=== PATIENT | female | born 1985 ===

== ENCOUNTER → 2020-07-01 09:33 | Outpatient (BNVA) | payer OTHER, SELFPAY | PROVIDERS: PCP Internal Medicine; Visit Provider Surgery | DX: Z76.89 Persons encountering health services in other specified circumstances (principal) ==

== ENCOUNTER 2020-07-08 11:47 | Outpatient (REF) | payer OTHER, SELFPAY ==
[2020-07-08 11:56] VITALS: BP 147/70; PULSE 84; RESP 16; TEMP 36.1; O2SAT 100
[2020-07-08 12:01] VITALS: BMI 36.6
[2020-07-08 12:25] VITALS: BP 150/80; PULSE 76; RESP 16; O2SAT 100
--- NOTE | 2020-07-08 19:17 | OP_ITS ---
SURGEON: Herberth Ross MD INDICATIONS: The patient is a 35-year-old female with lipomatous mass on the upper back towards the left of the midline. In view of increase in size, she wanted to proceed with excision. She understood technique of excision under local anesthesia and she is aware of the risks, benefits, and alternatives. PREOPERATIVE DIAGNOSIS: Lipoma from the back. POSTOPERATIVE DIAGNOSIS: Lipoma, subfascial on the back. PROCEDURE PERFORMED: Excision of subfascial lipoma, from the back. ESTIMATED BLOOD LOSS: COMPLICATIONS: ANESTHESIA: ASSISTANTS: SPECIMENS: DESCRIPTION OF PROCEDURE: She was brought to the minor procedure room and placed in prone position. The area of lipoma was prepped and draped. Lidocaine 1% was used for local anesthesia. Transverse incision was made in the skin overlying the lipoma using blade #15, it was carried down to full-thickness skin and thick subcutaneous fat. We continued to palpate lipoma. We reached the fascia of the muscle and the lipoma was actually underneath this, so we had to make an incision on the fascia as well. The lipoma was then directly visualized. We sharply dissected lipoma off the rest of the surrounding tissue using Metzenbaum scissors until we were able to completely deliver this. The lipoma measured about 4 cm x 3 cm in size. I irrigated the area of excision. I closed the fascial layer with Dexon 3-0 interrupted sutures. Skin closure achieved with nylon 3-0 interrupted sutures. Dressings were applied. The patient tolerated the procedure well. There were no complications noted. She will be seen in the office for followup for removal of sutures. MD ADRIANA Chen/MODL / [id number]
== END 2020-07-08 11:48 | disposition home or self-care (01) ==
LOC: HO.MS 11:47
PROVIDERS: Visit Provider Surgery
PROC: (CPT 21932; principal; 2020-07-08 12:00)
DX: D17.1 Benign lipomatous neoplasm of skin and subcutaneous tissue of trunk (principal); F41.9 Anxiety disorder, unspecified; Z79.899 Other long term (current) drug therapy
CPT/HCPCS: 21932; 88304

== ENCOUNTER → 2020-07-17 15:46 | Outpatient (BNVA) | payer OTHER, SELFPAY | PROVIDERS: Visit Provider Surgery ==

== ENCOUNTER 2021-05-21 06:29 | Outpatient (REF) | payer OTHER, SELFPAY ==
[2021-05-21 07:48] LABS: Alanine Aminotransferase 25 U/L (0-31); Albumin Level 4.3 g/dL (3.5-5.0); Alkaline Phosphatase 82 U/L (39-117); Anion Gap 14 (12-20); Aspartate Amino Transferase 22 U/L (5-31); Bilirubin Total 0.3 mg/dL (0.0-1.0); Blood Urea Nitrogen 15 mg/dL (9-16); Calcium 9.5 mg/dL (8.4-10.2); Carbon Dioxide 24 mmol/L (22-29); Chloride 106 mmol/L (96-108); Cholesterol 216 mg/dL; Estimated Glomerular Filt Rate > 60; Glucose Fasting 119 mg/dL (60-99); HDL Cholesterol 39 mg/dL; LDL Cholesterol Calculated 129 mg/dl; Potassium 4.4 mmol/L (3.3-5.1); Sodium 140 mmol/L (135-145); Total Protein 7.3 g/dL (6.5-8.0); Triglycerides 242 mg/dL
[2021-05-21 08:11] LABS: TSH reflex Free T4 0.91 uIU/mL (0.32-4.0)
== END 2021-05-21 06:30 | disposition home or self-care (01) ==
LOC: HO.LAB 06:29
PROVIDERS: PCP Internal Medicine; Visit Provider Internal Medicine
DX: E78.5 Hyperlipidemia, unspecified (principal); R73.03 Prediabetes; F41.1 Generalized anxiety disorder
CPT/HCPCS: 36415; 80053; 80061; 84443

== ENCOUNTER 2021-06-27 09:13 | Outpatient (REF) | payer OTHER, SELFPAY ==
[2021-06-27 10:28] LABS: Anion Gap 10 (12-20); Blood Urea Nitrogen 10 mg/dL (9-16); Calcium 9.5 mg/dL (8.4-10.2); Carbon Dioxide 28 mmol/L (22-29); Chloride 104 mmol/L (96-108); Cholesterol 197 mg/dL; Estimated Glomerular Filt Rate > 60; Glucose Fasting 101 mg/dL (60-99); HDL Cholesterol 36 mg/dL; LDL Cholesterol Calculated 124 mg/dl; Potassium 4.2 mmol/L (3.3-5.1); Sodium 138 mmol/L (135-145); Triglycerides 187 mg/dL
[2021-06-27 10:39] LABS: TSH reflex Free T4 0.59 uIU/mL (0.32-4.0)
[2021-06-27 10:40] LABS: Estimated Average Glucose 114 mg/dL; Hemoglobin A1c % 5.6 %
== END 2021-06-27 09:14 | disposition home or self-care (01) ==
LOC: HO.LAB 09:13
PROVIDERS: PCP Internal Medicine; Visit Provider Internal Medicine
DX: E78.5 Hyperlipidemia, unspecified (principal); F41.1 Generalized anxiety disorder; R73.03 Prediabetes
CPT/HCPCS: 36415; 80048; 80061; 83036; 84443

== ENCOUNTER 2022-04-27 16:03 | Outpatient (REF) | payer OTHER, SELFPAY ==
--- NOTE | ~2022-04-27 | MM_ITS ---
EXAMINATION: MM SCREENING DIGITAL BREAST TOMOSYNTHESIS, BILATERAL CLINICAL INFORMATION: Screening. Asymptomatic. Age 37. No prior breast imaging. The lifetime risk of breast cancer based on the Tyrer-Cuzick Model is 25%. COMPARISON: None (current study represents initial baseline exam). TECHNIQUE: Digital breast tomosynthesis is performed in both the craniocaudal and mediolateral oblique views along with computer-aided detection (CAD). Synthesized 2D images are generated from the tomosynthesis. Additional exaggerated right CC view is provided. FINDINGS: There are scattered areas of fibroglandular density (ACR BI-RADS breast composition Category b). Breast tissue composition borders on heterogeneously dense. There is fine fibronodular parenchymal pattern. No significant mass or architectural abnormality. No abnormal calcifications. The axilla are unremarkable. There are dermal lesions overlying the posterior 11:00 left breast and posterior lower inner right breast, respectively. MM/MM tomosynthesis screening BI IMPRESSION: No mammographic evidence of malignancy. ASSESSMENT: BI-RADS 2: Benign RECOMMENDATION: Routine annual mammography screening. This patient's information was entered into a reminder system with a target due date for their next mammogram.
== END 2022-04-27 16:04 | disposition home or self-care (01) ==
LOC: HO.MAMMO 16:03
PROVIDERS: Visit Provider Internal Medicine
DX: Z12.31 Encounter for screening mammogram for malignant neoplasm of breast (principal)
CPT/HCPCS: 77063; 77067

== ENCOUNTER 2022-05-14 21:44 | Emergency (ER) | payer OTHER, SELFPAY ==
[2022-05-14 21:53] VITALS: BP 147/98; PULSE 80; RESP 24; TEMP 36.1; O2SAT 100; BMI 34.9
[2022-05-14 22:08] VITALS: BP 161/100; PULSE 61; RESP 17; TEMP 37; O2SAT 99
--- NOTE | 2022-05-14 22:18 | ED.HA ---
HPI - Headache General Chief Complaint: Headache Stated Complaint: severe migraine and vomiting Time Seen by Provider: 05/14/22 22:05 Source: patient Mode of arrival: ambulatory Limitations: no limitations History of Present Illness HPI Narrative: Patient history of anxiety and migraine headache been having headache for last 3 days headache is mostly in frontal in the back of the head patient does get headaches almost every 3 weeks has not seen any specialist not special medication take Excedrin and Tylenol. No fever no chills feel nauseated vomiting few times no light sensitivity no neck pain or fever or chills Related Data Previous Rx's Medication Instructions Recorded nirmatrelvir 300 mg (150 mg See Rx Instructions PO .COMPLEX 01/20/22 x2)-ritonavir 100 mg tablet,dose #30 tabs pack(EUA) ondansetron HCl 4 mg tablet 4 mg PO Q8H PRN nausea and 01/20/22 vomiting 7 days #14 tabs fluoxetine 20 mg capsule 20 mg PO DAILY 90 days #90 caps 05/10/22 soiukccuuk-ppdcbhbavxeyx-xuxpyvxg 1 cap PO Q6H PRN headache #20 caps 05/15/22 50 mg-300 mg-40 mg capsule (Fioricet) sumatriptan succinate 50 mg tablet 50 mg PO Q2H PRN migraine headache 05/15/22 (Imitrex) #10 tabs Allergies Allergy/AdvReac Type Severity Reaction Status Date / Time No Known Allergies Allergy Verified 07/17/20 15:55 Review of Systems Review of Systems: Yes all other systems are reviewed and are negative PMFSH Past Medical History Medical History Abnormal skin growth Anxiety, generalized Elevated lipids Lipoma Surgical History No pertinent past surgical history Family History Family History Father No problems noted. Mother No problems noted. Paternal Grandmother Breast cancer Sister No problems noted. Paternal Aunt Breast cancer Social History Social History Alcohol intake: current Alcohol intake frequency: holidays/special occasions only Advance Directives: No Advance Directives Information Provided: Yes Physical Exam Vital Signs: Vital Signs: Last Vital Signs Temp 98.6 F 05/14/22 22:08 Pulse 61 05/14/22 22:08 Resp 17 05/14/22 22:08 BP 161/100 H 05/14/22 22:08 Pulse Ox 99 05/14/22 22:08 O2 Del Method 05/14/22 22:08 BMI result Body Mass Index 34.9 Appearance: Alert. Oriented X3. No acute distress. Eyes: PERRLA, No Nystagmus ENT: Pharynx normal. Oral Mucosa moist no temporal artery tenderness no sinus tenderness Neck: Normal inspection. Neck supple. CVS: Normal heart rate and rhythm. Pulses normal. Respiratory: No respiratory distress. Equal air entry bilateral, no wheezing/rales/rhonchi Abdomen: Soft and nontender. Bowel sounds are present, no mass palpable, no CVA tenderness Skin: Skin warm and dry. Normal skin color. Normal skin turgor. Extremities: No lower extremity edema. No calf tenderness Neuro: Oriented X 3. No motor deficit. No sensory deficit.No cerebellar signs , cranial nerves II-XII intact Medications Administered Discontinued Medications Generic Name Dose Route Start Last Admin Trade Name Freq PRN Reason Stop Dose Admin Diphenhydramine HCl 25 mg 05/14/22 23:18 05/14/22 23:31 Diphenhydramine Hcl 50 Mg/Ml Vial IVPUSH 05/14/22 23:19 25 mg ONCE ONE Administration Ketorolac Tromethamine 30 mg 05/14/22 23:18 05/14/22 23:31 Ketorolac Tromethamine 30 Mg/Ml Vial IVPUSH 05/14/22 23:19 30 mg ONCE ONE Administration Metoclopramide HCl 10 mg 05/14/22 23:18 05/14/22 23:31 Metoclopramide Hcl 10 Mg/2 Ml Vial IVPUSH 05/14/22 23:19 10 mg ONCE ONE Administration Ondansetron HCl 4 mg 05/14/22 22:30 05/14/22 22:59 Ondansetron Odt 4 Mg Tab.Rapdis TRANSLINGU 05/14/22 22:31 4 mg ONCE ONE Administration Sumatriptan Succinate 6 mg 05/14/22 22:30 05/14/22 22:59 Sumatriptan Succinate 6 Mg/0.5 Ml Vial SUBCUT 05/14/22 22:31 6 mg ONCE ONE Administration MDM - Headache MDM Narrative Medical decision making narrative: Patient migraine headache headache since be migraine will try Imitrex and Zofran 0015 Poor response to Imitrex responded to Toradol Benadryl and Reglan discharge patient home on Fioricet and Imitrex Lab Data Attestation: I reviewed the patient's lab results. Result diagrams: 05/14/22 23:27 05/14/22 23:27 Labs: Lab Results 05/14/22 05/14/22 Range/Units 23:27 23:27 WBC 15.2 H (4.8-10.8) X10*3/uL RBC 4.51 (4.20-5.50) X10*6/uL Hgb 12.4 (12.0-16.0) g/dl Hct 38.6 (37.0-47.0) % MCV 85.6 (80.0-98.0) fL MCH 27.5 (27.0-33.0) pg MCHC 32.1 (31.0-35.0) g/dl RDW 14.3 (11.0-16.0) % Plt Count 269 (160-400) X10*3/uL MPV 9.9 (9.4-12.3) fL Immature Gran % (Auto) 0.4 (0.0-0.4) % Neut % (Auto) 83.0 H (45-73) % Lymph % (Auto) 12.3 L (20-40) % [place] % (Auto) 3.9 (2-11) % Eos % (Auto) 0.1 (0-4) % Baso % (Auto) 0.3 (0-2) % Lymph # (Auto) 1.9 (1.2-4.9) X10*3/uL [place] # (Auto) 0.6 (0.1-1.2) X10*3/uL Eos # (Auto) 0.0 (0.0-0.4) X10*3/uL Baso # (Auto) 0.1 (0.0-0.2) X10*3/uL Abs Immat Gran (auto) 0.06 H (0.00-0.03) X10*3/uL Absolute Neuts (auto) 12.6 H (2.0-8.3) x10*3/uL Absolute Nucleated RBC 0.000 (0.0-0.012) X10*3/uL Nucleated RBC % (auto) 0.0 (0.0-0.2) /100WBC Sodium 139 (135-145) mmol/L Potassium 3.6 (3.3-5.1) mmol/L Chloride 101 (96-108) mmol/L Carbon Dioxide 25 (22-29) mmol/L Anion Gap 17 (12-20) BUN 14 (9-16) mg/dL Creatinine 1.09 (0.5-1.4) mg/dL Estim Creat Clear Calc 79.1 Estimated GFR 56 Random Glucose 124 H (60-115) mg/dL Calcium 9.3 (8.4-10.2) mg/dL Discharge Plan Discharge Clinical Impression: Migraine Patient Disposition: Home, Self-Care Instructions: Migraine Headache (ED) Additional Instructions: Drink plenty of fluids Fioricet for headache as prescribed Imitrex 1 tablet at onset of headache may repeat in 2 hours if headache continues not more than 2 tablets in 24 hours Follow-up with your PCP Prescriptions: New sumatriptan succinate [Imitrex] 50 mg tablet 50 mg PO Q2H PRN (Reason: migraine headache) Qty: 10 0RF Rx Instructions: do not exceed 2 doses per 24 hrs ztmjyjngue-svnrcfobymmoi-jjoy [Fioricet] 50-300-40 mg capsule 1 cap PO Q6H PRN (Reason: headache) Qty: 20 0RF No Action nirmatrelvir-ritonavir 300 mg (150 mg x 2)-100 mg tablet See Rx Instructions PO .COMPLEX Qty: 30 0RF Rx Instructions: take TWO 150 mg tablets of nirmatrelvir with ONE 100 mg tablet of ritonavir twice daily for 5 days PO ondansetron HCl 4 mg tablet 4 mg PO Q8H PRN (Reason: nausea and vomiting) 7 Days Qty: 14 0RF fluoxetine 20 mg capsule 20 mg PO DAILY 90 Days Qty: 90 0RF
[2022-05-14] MEDS: SUMAtriptan succinate 6 MG/0.5 ML VIAL SUBCUT (22:59)
[2022-05-14] MEDS: Ondansetron ODT 4 MG TAB.RAPDIS TRANSLINGU (22:59)
[2022-05-14] MEDS: Ketorolac Tromethamine 30 MG/ML VIAL IVPUSH (23:31)
[2022-05-14] MEDS: diphenhydrAMINE HCL 50 MG/ML VIAL 25 MG IVPUSH (23:31)
[2022-05-14] MEDS: Metoclopramide HCl 10 MG/2 ML VIAL IVPUSH (23:31)
[2022-05-14 23:33] LABS: Basophils Absolute Auto 0.1 X10*3/uL (0.0-0.2); Basophils Percent Auto 0.3 % (0-2); Eosinophils Percent Auto 0.1 % (0-4); Hematocrit 38.6 % (37.0-47.0); Hemoglobin 12.4 g/dl (12.0-16.0); Imm Gran Abs Auto 0.06 X10*3/uL (0.00-0.03); Imm Gran Pct Auto 0.4 % (0.0-0.4); Lymphocytes Absolute Auto 1.9 X10*3/uL (1.2-4.9); Lymphocytes Percent Auto 12.3 % (20-40); MANUAL DIFF FLAG NO; Mean Corpuscular HGB Conc 32.1 g/dl (31.0-35.0); Mean Corpuscular Hemoglobin 27.5 pg (27.0-33.0); Mean Corpuscular Volume 85.6 fL (80.0-98.0); Mean Platelet Volume 9.9 fL (9.4-12.3); Monocytes Absolute Auto 0.6 X10*3/uL (0.1-1.2); Monocytes Percent Auto 3.9 % (2-11); Neutrophils Absolute Auto 12.6 x10*3/uL (2.0-8.3); Platelet Count 269 X10*3/uL (160-400); Red Blood Count 4.51 X10*6/uL (4.20-5.50); Red Cell Distribution Width 14.3 % (11.0-16.0); White Blood Count 15.2 X10*3/uL (4.8-10.8)
[2022-05-14 23:53] LABS: Anion Gap 17 (12-20); Blood Urea Nitrogen 14 mg/dL (9-16); Calcium 9.3 mg/dL (8.4-10.2); Carbon Dioxide 25 mmol/L (22-29); Chloride 101 mmol/L (96-108); Creatinine Clr Calc Pharmacy 79.1; Estimated Glomerular Filt Rate 56; Glucose Random 124 mg/dL (60-115); Potassium 3.6 mmol/L (3.3-5.1); Sodium 139 mmol/L (135-145)
== END 2022-05-15 00:40 | disposition home or self-care (01) ==
PROVIDERS: Emergency Provider Internal Medicine; PCP Internal Medicine
DX: G43.909 Migraine, unspecified, not intractable, without status migrainosus (principal); Z79.899 Other long term (current) drug therapy
CPT/HCPCS: 36415; 80048; 85025; 96372; 96374; 96375; 99283; 99284; J1200; J1885; J2765; J3030

== ENCOUNTER 2022-05-16 06:48 | Emergency (ER) | payer OTHER, SELFPAY ==
--- NOTE | ~2022-05-16 | CT_ITS ---
EXAMINATION: CT HEAD WITHOUT CONTRAST CLINICAL INFORMATION: Migrating with vomiting COMPARISON: None TECHNIQUE: Contiguous axial imaging was performed from the skull base to vertex without intravenous administration of contrast. This CT examination was performed using dose optimization techniques as appropriate, variously including the following: *Automated exposure control *Adjustment of mA and/or kV according to patient size (this includes techniques or standardized protocols for targeted exams where dose is matched to indication/reason for exam; i.e. extremities or head) *Use of iterative reconstruction technique DLP: 719 mGy-cm FINDINGS: There is no evidence of acute intracranial hemorrhage or territorial infarction. No abnormal mass effect or midline shift is seen. [place] to white matter differentiation is well preserved. No extra-axial fluid collections are identified. The ventricles are normal in size. No abnormal attenuation in the brain parenchyma. No acute calvarial fracture.. Paranasal sinuses and mastoid air cells are well-aerated. CT/CT head/brain wo IV con IMPRESSION: No CT evidence of acute intracranial hemorrhage or edematous territorial infarction..
[2022-05-16 06:57] VITALS: BP 148/70; PULSE 84; RESP 17; TEMP 36.6; O2SAT 98; BMI 34.9
--- NOTE | 2022-05-16 07:18 | ED_ITS ---
HPI - Headache General Chief Complaint: Headache Stated Complaint: nausea, vomiting, migraine Time Seen by Provider: 05/16/22 07:05 Source: patient Mode of arrival: ambulatory Limitations: no limitations History of Present Illness HPI Narrative: 37-year-old female who presents emergency department for evaluation of nausea, vomiting and headache. Patient does have a history of migraine headaches. She states that 4 days prior she woke up with a severe headache. She states that the headache is been constant since them but waxes and wanes in intensity. She states that the headache is a stabbing sensation which is 10/10 at its worst. The headaches associated with nausea and vomiting. The patient states that she has taken Imitrex and Zofran at home without any relief for headache. She was seen in the emergency department on 05/14/2022 with similar symptoms, she was treated with regular in, Toradol, Benadryl, Imitrex and Zofran with improvement of her symptoms at that time. She denies being ill in any other way, she denied fever, chills. MD elicited complaint: migraine Onset (ago): day(s) (4) Onset description: on awakening and other Location: frontal and occipital Severity: severe Pain scale (0-10): 10 Quality & Timing: other (Stab) Exacerbating factors: none Relieving factors: nothing Associated symptoms: nausea, vomiting and photophobia Related Data Previous Rx's Medication Instructions Recorded nirmatrelvir 300 mg (150 mg See Rx Instructions PO .COMPLEX 01/20/22 x2)-ritonavir 100 mg tablet,dose #30 tabs pack(EUA) ondansetron HCl 4 mg tablet 4 mg PO Q8H PRN nausea and 01/20/22 vomiting 7 days #14 tabs fluoxetine 20 mg capsule 20 mg PO DAILY 90 days #90 caps 05/10/22 nsyornxdqd-pwxapbzcdrbag-hijabyyi 1 cap PO Q6H PRN headache #20 caps 05/15/22 50 mg-300 mg-40 mg capsule (Fioricet) sumatriptan succinate 50 mg tablet 50 mg PO Q2H PRN migraine headache 05/15/22 (Imitrex) #10 tabs metoclopramide HCl 10 mg tablet 10 mg PO Q6H PRN nausea and 05/16/22 (Reglan) vomiting #14 tabs morphine 15 mg immediate release 15 mg PO Q4-6H PRN pain #10 tabs 05/16/22 tablet Allergies Allergy/AdvReac Type Severity Reaction Status Date / Time No Known Allergies Allergy Verified 07/17/20 15:55 Review of Systems Review of Systems: Yes all other systems are reviewed and are negative [facility] Past Medical History [facility] Narrative: Social history: 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 She denies tobacco use. She occasionally drinks alcohol. She denies drug use. Medical History Abnormal skin growth Anxiety, generalized Elevated lipids Lipoma Surgical History No pertinent past surgical history Family History Family History Father No problems noted. Mother No problems noted. Paternal Grandmother Breast cancer Sister No problems noted. Paternal Aunt Breast cancer Social History Social History Alcohol intake: current Alcohol intake frequency: holidays/special occasions only Advance Directives: No Physical Exam Vital Signs: Vital Signs: Last Vital Signs Temp 98 F 05/16/22 06:57 Pulse 57 05/16/22 09:01 Resp 20 05/16/22 09:01 BP 133/76 05/16/22 09:01 Pulse Ox 96 05/16/22 09:01 O2 Del Method 05/16/22 09:01 BMI result Body Mass Index 34.9 Const: Other: Awake, alert, female patient, she is dry heaving, she appears to be in significant distress secondary to her pain, she is able to answer all questions appropriately HEENT: Head: Yes normal to inspection, Yes normocephalic and Yes atraumatic Ears: external ears normal General nose exam: Normal external nose present Face and sinus: Yes normal facial exam Mouth: Normal oral and palatal mucosa present Throat: Yes posterior oropharynx normal Eyes: General: appearance normal, both eyes and all related structures Pupils: Equal, round and reactive pupils present Neck: Neck: Yes normal visual inspection, Yes no lymphadenopathy, Yes trachea midline and Yes supple Chest: Chest palpation & inspection: normal inspection of the chest and normal palpation of entire chest wall Resp: Effort & Inspection: normal respiratory effort and able to speak in complete sentences Auscultation: clear to auscultation bilaterally Cardio: Rate: regular rate Rhythm: regular rhythm Heart sounds: S1 normal heart sound present, S2 normal heart sound present and no murmurs GI: Inspection: Yes normal to inspection Palpation (GI): Soft to palpation, nontender and no guarding Auscultation: normal bowel sounds : General: Yes no CVA tenderness Back/Spine/Pelvis: Back: no CVA tenderness Skin: General skin exam: no rashes or lesions noted Neuro: Cranial nerves: Yes CN's II-XII intact bilaterally and Yes Equal, round and reactive pupils present Cognition (Neuro): normal cognition Motor exam (neuro): 5/5 motor strength present throughout Extrem: General: Yes normal to inspection Psych: Appearance: grossly normal Speech and movement: Normal speech and movement present Attitude: cooperative Course Course Course Narrative: 37-year-old female with a history migraine syndrome who presents emergency department for evaluation of 4 days of headache which waxes and wanes in inte nsity, headache is located in the frontal and the septal area of her scalp, the headache is stabbing sensation which is 10/10 at its worst. Patient has had associated nausea and vomiting. She has also had photophobia. Physical examination did reveal elevated blood pressure of 148/70 but this is most likely secondary to her pain and distress, she also has an elevated respiratory rate of 24 gland related to her pain and distress. I ordered laboratory evaluation to include CBC and CMP. Patient will be treated with Toradol 15 mg IV, Reglan 10 mg IV and Benadryl 50 mg IV. I also ordered normal saline x1 L. 0828: The patient is feeling better after the above treatment she states that her pain is 5/10. She states that she does not get severe headaches like this and that this is unusual headache therefore I did order a CT scan of the brain to rule out bleed versus mass. Patient was ordered to get a dose of morphine 4 mg IV. 0925: Laboratory evaluation [place] [address], this is similar to her previous value of 15 CO2 was low 19, glucose elevated 128. CT scan of the patient's head without IV contrast interpreted by the radiologist as no acute findings. At this time I do not have a clear etiology for the patient's headache. I do not think that she has had bacterial meningitis I did discuss the possibility of a viral meningitis which could be diagnosed with spinal tap. After this discussion, we both agree that a spinal tap was not warranted this time. Also, I do not think that this is an aneurysm with a sentinel bleed and discuss the possibility of MRI with the patient and at this time we both agree that the patient does not need an MRI at this point. The patient was given a another dose morphine 4 mg IV. Patient will be discharged home on a headache regimen of Reglan, Benadryl and Excedrin migraine. She is also given a prescription for morphine in the event that these medications only her pain. She was given printed and verbal instructions and discharged home Medications Administered Discontinued Medications Generic Name Dose Route Start Last Admin Trade Name Dimple PRN Reason Stop Dose Admin Diphenhydramine HCl 50 mg 05/16/22 07:13 05/16/22 07:39 Diphenhydramine Hcl 50 Mg/Ml Vial IVPUSH 05/16/22 07:14 50 mg ONCE STA Administration Sodium Chloride 1,000 mls @ 999 mls/hr 05/16/22 07:13 05/16/22 07:42 Ns IV 05/16/22 08:13 999 mls/hr .Q1H1M STA Administration Ketorolac Tromethamine 15 mg 05/16/22 07:13 05/16/22 07:39 Ketorolac Tromethamine 15 Mg/Ml Vial IVPUSH 05/16/22 07:14 15 mg ONCE STA Administration Metoclopramide HCl 10 mg 05/16/22 07:13 05/16/22 07:40 Metoclopramide Hcl 10 Mg/2 Ml Vial IVPUSH 05/16/22 07:14 10 mg ONCE STA Administration Morphine Sulfate 4 mg 05/16/22 08:27 05/16/22 08:51 Morphine Sulfate 4 Mg/Ml Cartridge IVPUSH 05/16/22 08:28 4 mg ONCE STA Administration Protocol Morphine Sulfate 4 mg 05/16/22 09:24 05/16/22 09:37 Morphine Sulfate 4 Mg/Ml Cartridge IVPUSH 05/16/22 09:25 4 mg ONCE STA Administration Protocol MDM - Headache Lab Data Result diagrams: 05/16/22 07:31 05/16/22 07:31 Labs: Lab Results 05/16/22 05/16/22 Range/Units 07:31 07:31 WBC 14.8 H (4.8-10.8) X10*3/uL RBC 4.99 (4.20-5.50) X10*6/uL Hgb 13.6 (12.0-16.0) g/dl Hct 42.2 (37.0-47.0) % MCV 84.6 (80.0-98.0) fL MCH 27.3 (27.0-33.0) pg MCHC 32.2 (31.0-35.0) g/dl RDW 14.3 (11.0-16.0) % Plt Count 316 (160-400) X10*3/uL MPV 10.2 (9.4-12.3) fL Immature Gran % (Auto) 0.4 (0.0-0.4) % Neut % (Auto) 84.3 H (45-73) % Lymph % (Auto) 11.8 L (20-40) % [place] % (Auto) 3.1 (2-11) % Eos % (Auto) 0.1 (0-4) % Baso % (Auto) 0.3 (0-2) % Lymph # (Auto) 1.8 (1.2-4.9) X10*3/uL [place] # (Auto) 0.5 (0.1-1.2) X10*3/uL Eos # (Auto) 0.0 (0.0-0.4) X10*3/uL Baso # (Auto) 0.1 (0.0-0.2) X10*3/uL Abs Immat Gran (auto) 0.06 H (0.00-0.03) X10*3/uL Absolute Neuts (auto) 12.5 H (2.0-8.3) x10*3/uL Absolute Nucleated RBC 0.000 (0.0-0.012) X10*3/uL Nucleated RBC % (auto) 0.0 (0.0-0.2) /100WBC Sodium 142 (135-145) mmol/L Potassium 3.8 (3.3-5.1) mmol/L Chloride 108 (96-108) mmol/L Carbon Dioxide 19 L (22-29) mmol/L Anion Gap 19 (12-20) BUN 17 H (9-16) mg/dL Creatinine 1.14 (0.5-1.4) mg/dL Estim Creat Clear Calc 75.6 Estimated GFR 53 Random Glucose 128 H (60-115) mg/dL Calcium 9.7 (8.4-10.2) mg/dL Total Bilirubin 0.5 (0.0-1.0) mg/dL AST 34 H (5-31) U/L ALT 25 (0-31) U/L Alkaline Phosphatase 72 (39-117) U/L Total Protein 7.3 (6.5-8.0) g/dL Albumin 4.4 (3.5-5.0) g/dL Discharge Plan Discharge Clinical Impression: Headache Qualifiers: Headache chronicity pattern: acute headache Intractability: not intractable Nausea & vomiting Qualifiers: Vomiting type: unspecified Qualified Code(s): R11.2 - Nausea with vomiting, unspecified Patient Disposition: Home, Self-Care Additional Instructions: Your blood work did reveal an elevated white blood cell count otherwise was unremarkable. The CT scan of your brain without IV contrast did not reveal a clear cause for your headache. At this time I believe that your having a migraine-like headache and I do not think that you have bacterial meningitis, viral meningitis or bleeding aneurysm is the cause of your pain. Your symptoms are consistent with a migraine. I want you to take the following 3 medications together every 6 hours as needed for headache, nausea or vomiting. Reglan (metoclopramide) in 10 mg, 1 pill Benadryl 25 mg, 2 pills Excedrin migraine, 2 pills. After you take these medications, lie down in a dark quiet room and try to fall asleep. These medications will make you sleepy, do not drive or work after taking these medications For pain not relieved by these medications, l take morphine 15 mg pills, 1 pill every 4 hours as needed for pain. This medication will make you sleepy, do not drive or work while taking this medication. Morphine is a narcotic medication and can be addicting. If you are concerned about addiction you can ask the pharmacist for less pills or do not get this prescription filled. Follow-up with your doctor in 2 days. Please return to the emergency department if your symptoms get worse or if you develop any symptoms that are concerning to you. Prescriptions: New morphine 15 mg tablet 15 mg PO Q4-6H PRN (Reason: pain) Qty: 10 0RF Rx Instructions: The patient may ask for partial fill; Partial Fill upon patient request. metoclopramide HCl [Reglan] 10 mg tablet 10 mg PO Q6H PRN (Reason: nausea and vomiting) Qty: 14 0RF No Action nirmatrelvir-ritonavir 300 mg (150 mg x 2)-100 mg tablet See Rx Instructions PO .COMPLEX Qty: 30 0RF Rx Instructions: take TWO 150 mg tablets of nirmatrelvir with ONE 100 mg tablet of ritonavir twice daily for 5 days PO ondansetron HCl 4 mg tablet 4 mg PO Q8H PRN (Reason: nausea and vomiting) 7 Days Qty: 14 0RF fluoxetine 20 mg capsule 20 mg PO DAILY 90 Days Qty: 90 0RF sumatriptan succinate [Imitrex] 50 mg tablet 50 mg PO Q2H PRN (Reason: migraine headache) Qty: 10 0RF Rx Instructions: do not exceed 2 doses per 24 hrs fgkxtcarie-qypniixyznlpr-uvej [Fioricet] 50-300-40 mg capsule 1 cap PO Q6H PRN (Reason: headache) Qty: 20 0RF
[2022-05-16 07:20] VITALS: BP 144/73; PULSE 51; RESP 24; O2SAT 100
[2022-05-16 07:36] LABS: MANUAL DIFF FLAG NO
[2022-05-16 07:39] LABS: Basophils Absolute Auto 0.1 X10*3/uL (0.0-0.2); Basophils Percent Auto 0.3 % (0-2); Eosinophils Percent Auto 0.1 % (0-4); Hematocrit 42.2 % (37.0-47.0); Hemoglobin 13.6 g/dl (12.0-16.0); Imm Gran Abs Auto 0.06 X10*3/uL (0.00-0.03); Imm Gran Pct Auto 0.4 % (0.0-0.4); Lymphocytes Absolute Auto 1.8 X10*3/uL (1.2-4.9); Lymphocytes Percent Auto 11.8 % (20-40); Mean Corpuscular HGB Conc 32.2 g/dl (31.0-35.0); Mean Corpuscular Hemoglobin 27.3 pg (27.0-33.0); Mean Corpuscular Volume 84.6 fL (80.0-98.0); Mean Platelet Volume 10.2 fL (9.4-12.3); Monocytes Absolute Auto 0.5 X10*3/uL (0.1-1.2); Monocytes Percent Auto 3.1 % (2-11); Neutrophils Absolute Auto 12.5 x10*3/uL (2.0-8.3); Neutrophils Percent Auto 84.3 % (45-73); Platelet Count 316 X10*3/uL (160-400); Red Blood Count 4.99 X10*6/uL (4.20-5.50); Red Cell Distribution Width 14.3 % (11.0-16.0); White Blood Count 14.8 X10*3/uL (4.8-10.8)
[2022-05-16] MEDS: Ketorolac Tromethamine 15 MG/ML VIAL IVPUSH (07:39)
[2022-05-16] MEDS: diphenhydrAMINE HCL 50 MG/ML VIAL IVPUSH (07:39)
[2022-05-16] MEDS: Metoclopramide HCl 10 MG/2 ML VIAL IVPUSH (07:40)
[2022-05-16] MEDS: 0.9 % Sodium Chloride 1,000 ML 999 ML IV (07:42)
--- NOTE | 2022-05-16 07:51 | PC.NURSE ---
pt. alert and oriented x 3. complains of headache 04/06. pt denies history of migraines and states this has only happen once before a few days ago when she was also seen in the ED. VS hr 43/50. BP 144/73. other vitals wnl. gave her toradol and reglan as well as benedryl. pt vomited before meds were administered. now pt seems more calm. pt says pain is getting better 03/07
[2022-05-16 08:50] LABS: Alanine Aminotransferase 25 U/L (0-31); Albumin Level 4.4 g/dL (3.5-5.0); Alkaline Phosphatase 72 U/L (39-117); Anion Gap 19 (12-20); Aspartate Amino Transferase 34 U/L (5-31); Bilirubin Total 0.5 mg/dL (0.0-1.0); Blood Urea Nitrogen 17 mg/dL (9-16); Calcium 9.7 mg/dL (8.4-10.2); Carbon Dioxide 19 mmol/L (22-29); Chloride 108 mmol/L (96-108); Creatinine Clr Calc Pharmacy 75.6; Estimated Glomerular Filt Rate 53; Glucose Random 128 mg/dL (60-115); Potassium 3.8 mmol/L (3.3-5.1); Sodium 142 mmol/L (135-145); Total Protein 7.3 g/dL (6.5-8.0)
[2022-05-16] MEDS: Morphine Sulfate 4 MG/ML CARTRIDGE IVPUSH ×2 (08:51→09:37)
--- NOTE | 2022-05-16 08:56 | PC.NURSE ---
pt states ketorolac helped with pain. reports pain 5/10. giving her morphine per providers orders. pt resting comfortably.
[2022-05-16 09:01] VITALS: BP 133/76; PULSE 57; RESP 20; O2SAT 96
--- NOTE | 2022-05-16 09:38 | PC.NURSE ---
pt resting comfortably. states pain got better with morphine but it is already getting worse. reports a /. giving her another 4mg of morphine per providers orders.
== END 2022-05-16 10:17 | disposition home or self-care (01) ==
PROVIDERS: Emergency Provider Emergency Medicine Emergency Medical Services
DX: R51.9 Headache, unspecified (principal); R11.2 Nausea with vomiting, unspecified
CPT/HCPCS: 36415; 70450; 80053; 85025; 96361; 96374; 96375; 96376; 99284; J1200; J1885; J2270; J2765

== ENCOUNTER 2022-05-18 15:13 | Outpatient (REF) | payer OTHER, SELFPAY ==
[2022-05-18 16:36] LABS: Erythrocyte Sedimentation Rate 17 MM/HR (0-20)
[2022-05-20 02:12] LABS: Lyme Abs Screen <0.90 index
== END 2022-05-18 15:14 | disposition home or self-care (01) ==
LOC: HO.LAB 15:13
PROVIDERS: PCP Psychiatry & Neurology Neurology; Visit Provider Psychiatry & Neurology Neurology
DX: G43.901 Migraine, unspecified, not intractable, with status migrainosus (principal)
CPT/HCPCS: 36415; 85652; 86617; 86618

== ENCOUNTER 2022-08-06 06:41 | Outpatient (REF) | payer OTHER, SELFPAY ==
[2022-08-06 06:49] LABS: MANUAL DIFF FLAG NO
[2022-08-06 07:42] LABS: Basophils Absolute Auto 0.1 X10*3/uL (0.0-0.2); Basophils Percent Auto 0.6 % (0-2); Eosinophils Absolute Auto 0.1 X10*3/uL (0.0-0.4); Eosinophils Percent Auto 0.9 % (0-4); Hematocrit 39.4 % (37.0-47.0); Hemoglobin 12.7 g/dl (12.0-16.0); Imm Gran Abs Auto 0.03 X10*3/uL (0.00-0.03); Imm Gran Pct Auto 0.3 % (0.0-0.4); Lymphocytes Absolute Auto 2.5 X10*3/uL (1.2-4.9); Lymphocytes Percent Auto 26.4 % (20-40); Mean Corpuscular HGB Conc 32.2 g/dl (31.0-35.0); Mean Corpuscular Hemoglobin 27.4 pg (27.0-33.0); Mean Corpuscular Volume 84.9 fL (80.0-98.0); Mean Platelet Volume 10.9 fL (9.4-12.3); Monocytes Absolute Auto 0.5 X10*3/uL (0.1-1.2); Neutrophils Absolute Auto 6.2 x10*3/uL (2.0-8.3); Neutrophils Percent Auto 66.8 % (45-73); Platelet Count 297 X10*3/uL (160-400); Red Blood Count 4.64 X10*6/uL (4.20-5.50); Red Cell Distribution Width 13.9 % (11.0-16.0); White Blood Count 9.3 X10*3/uL (4.8-10.8)
[2022-08-06 08:16] LABS: Estimated Average Glucose 114 mg/dL; Hemoglobin A1c % 5.6 %
[2022-08-06 08:46] LABS: Alanine Aminotransferase 19 U/L (0-31); Albumin Level 4.1 g/dL (3.5-5.0); Alkaline Phosphatase 74 U/L (39-117); Anion Gap 19 (12-20); Aspartate Amino Transferase 17 U/L (5-31); Bilirubin Total 0.5 mg/dL (0.0-1.0); Blood Urea Nitrogen 10 mg/dL (9-16); Carbon Dioxide 20 mmol/L (22-29); Chloride 106 mmol/L (96-108); Cholesterol 235 mg/dL; Estimated Glomerular Filt Rate > 60; Glucose Fasting 115 mg/dL (60-99); HDL Cholesterol 40 mg/dL; LDL Cholesterol Calculated 152 mg/dl; Potassium 4.2 mmol/L (3.3-5.1); Sodium 141 mmol/L (135-145); Total Protein 6.8 g/dL (6.5-8.0); Triglycerides 215 mg/dL
[2022-08-06 09:14] LABS: Calcium 9.4 mg/dL (8.4-10.2)
== END 2022-08-06 06:42 | disposition home or self-care (01) ==
LOC: HO.LAB 06:41
PROVIDERS: PCP Internal Medicine; Visit Provider Internal Medicine
DX: F41.1 Generalized anxiety disorder (principal); E78.5 Hyperlipidemia, unspecified; R73.03 Prediabetes; E66.09 Other obesity due to excess calories; G43.109 Migraine with aura, not intractable, without status migrainosus
CPT/HCPCS: 36415; 80053; 80061; 83036; 85025

== ENCOUNTER 2023-02-16 13:28 | Outpatient (AMB) | payer OTHER, SELFPAY ==
[2023-02-16 13:35] VITALS: BP 128/86; PULSE 78; O2SAT 99; BMI 33.5
--- NOTE | 2023-02-16 13:35 | A.OFFPC_ITS ---
Vital Signs 02/16/23 13:35 Height 5 ft 5 in Weight 201 lb 4 oz BMI 33.5 BP 128/86 Blood Pressure Location Lt brachial Position Sitting Pulse 78 Pulse Source Pulse Oximeter Pulse Oximetry (%) 99 Oxygen Delivery Method Room Air Intake Visit Reasons: PE Allergies No Known Allergies Allergy (Verified 02/16/23 13:36) Tobacco use date assessed: 02/16/23 Dental Screening Dental Screen Date: 02/16/23 Did you have a dental visit in the last 12 months?: Yes Did you have a dental problem in the last 6 months where you did not have access to dental care?: No Was dental information given to patient?: No HPI PE HPI Details Physical exam appointment Patient has OBGYN but has not seen them in a while patient says that she will book appointment herself Currently taking fluoxetine 40 mg with good control of symptoms. Breast exam declined Follow-up 6 months [facility], [facility] Medical History Abnormal skin growth Anxiety, generalized Elevated lipids Lipoma Surgical History No pertinent past surgical history Family History Father Substance use disorder Mother No problems noted. Paternal Grandmother Breast cancer Sister No problems noted. Paternal Aunt Breast cancer Social History Housing: Apartment Alcohol intake: current Alcohol intake frequency: holidays/special occasions only Patient Tobacco Use Status: Former Tobacco user e-Cigarette/Vaping Use: Never Used service: No Current occupational status: employed Cognitive needs: No Hearing needs: No Vision needs: Yes Questionnaire AUDIT C Alcohol Use Questionnaire (AUDIT-C) 1. How often do you have a drink containing alcohol?: Never 3. How often do you have six or more drinks on one occasion?: Never Total Score: 0 Score Reviewed/Action Taken: Yes Review of Systems Const Denies chills, Denies fever(s) and Denies headache(s) Eyes Denies blurry vision ENT Denies headache(s), Denies nasal discharge, Denies nasal obstruction, Denies odynophagia and Denies sinus pain Card Denies chest pain at rest and Denies chest pain with activity Resp Denies cough and Denies hemoptysis GI Denies diarrhea, Denies odynophagia, Denies vomiting and Denies hematemesis Reports as per HPI Musc Denies abnormal gait Skin/Breast Reports as per HPI Neuro Denies Neuro-related abnormal movements, Denies Abnormal speech present, Denies abnormal gait, Denies headache(s) and Denies Sensory deficit (Neuro) Psych Denies mood swings and Denies paranoia Endo Reports as per HPI North/Lymph Reports as per HPI Aller/Immun Reports as per HPI Physical exam (Primary Care) Vital Signs: Last Vital Signs Pulse 78 02/16/23 13:35 BP 128/86 02/16/23 13:35 Pulse Ox 99 02/16/23 13:35 Oxygen Delivery Method Room Air 02/16/23 13:35 BMI result Body Mass Index 33.5 Tobacco/Smoking Status: Tobacco use Status Tobacco use date assessed 02/16/23 02/16/23 13:37 Patient Tobacco Use Status Former Tobacco user 02/16/23 13:37 e-Cigarette/Vaping Use Never Used 02/16/23 13:37 Const General: cooperative, comfortable and no acute distress Orientation/consciousness: patient oriented x3 HENMT Head: Yes normocephalic and Yes atraumatic Eyes General: appearance normal, both eyes and all related structures Pupils: Equal, round and reactive pupils present EOM: EOMs intact bilaterally Neck Neck: Yes supple and No lymphadenopathy Thyroid: Thyroid normal Lymphatic: no lymphadenopathy noted Resp Effort & Inspection: normal respiratory effort and able to speak in complete sentences Auscultation: clear to auscultation bilaterally Cardio Heart sounds: S1 normal heart sound present and S2 normal heart sound present GI Palpation (GI): Soft to palpation and nontender Auscultation: normal bowel sounds General: Yes no CVA tenderness Back/Spine/Pelvis Back: no CVA tenderness Skin General skin exam: elasticity normal and turgor normal Neuro General: patient oriented x3 and gait normal Cranial nerves: Yes Equal, round and reactive pupils present Speech: No Abnormal speech present Sensory Exam: No Sensory deficit (Neuro) Coordination: tandem gait normal and Romberg test negative Extrem General: Yes normal exam except as noted and No edema Assessment and Plan Assessment & Plan (1) Encounter for general adult medical examination with abnormal findings: Code(s): Z00.01 - Encounter for general adult medical examination with abnormal findings (2) Migraine headache with aura: Code(s): G43.109 - Migraine with aura, not intractable, without status migrainosus (3) Obesity due to excess calories: Comment: If your BMI is between 25 and 29.9, you are overweight. If your BMI is 30 or greater, you are obese. ___ Being obese is a problem, because it increases the risks of many different health problems. It can also make it hard for you to move, breathe, and do other things that people who are at a healthy weight can do easily. Plus, being obese can be hard emotionally. ___ What are the health risks of being obese? Being obese increases a persons risk of developing many health problems. Here are just a few examples: __ Diabetes High blood pressure, High cholesterol, Heart disease (including heart attacks) Stroke, Sleep apnea (a disorder in which you stop breathing for short periods while asleep) Asthma, Cancer __ Does being obese shorten a persons life? Yes. Studies show that people who are obese younger than people who are a healthy weight. They also show that the risk of goes up the heavier a person is. The degree of increased risk depends on how long the person has been obese, and on what other medical problems he or she has. , Reduce your carbohydrate intake and choose carbs that are complex. Remember as a general rule of thumb, avoid highly processed foods. If it's white and soft, it's probably been stripped of its nutritional value. Change white bread to whole wheat bread, white rice to brown rice, white potatoes to sweet potatoes, white pasta to whole wheat pasta. Monitor portion sizes too: protein should be no bigger than your fist. Limit your red meat intake to only once or twice a wk. Eat more white meat but make sure to avoid creamy sauces etc. Broiling, baking or grilling is best. Increase dark, green leafy vegetables and fruits. Code(s): E66.09 - Other obesity due to excess calories (4) Anxiety, generalized: Code(s): F41.1 - Generalized anxiety disorder Plan Physical exam appointment Patient has OBGYN but has not seen them in a while patient says that she will book appointment herself Currently taking fluoxetine 40 mg with good control of symptoms. Headaches are stable BMI is elevated at 33.5 patient need to lose weight Follow-up 6 months Coding Level of Care Code Est Pt Prev Care 40-64y(88018) Diagnoses Encounter for general adult medical examination with abnormal findings Z00.01 Migraine headache with aura G43.109 Obesity due to excess calories E66.09 Anxiety, generalized F41.1
== END 2023-02-16 13:54 | disposition home or self-care (01) ==
PROVIDERS: PCP Internal Medicine; Visit Provider Internal Medicine
DX: Z00.00 Encounter for general adult medical examination without abnormal findings (principal); G43.109 Migraine with aura, not intractable, without status migrainosus; E66.09 Other obesity due to excess calories; Z68.33 Body mass index [BMI] 33.0-33.9, adult; F41.1 Generalized anxiety disorder
CPT/HCPCS: 99395

== ENCOUNTER 2023-07-16 15:44 | Outpatient (REF) | payer OTHER, SELFPAY | END 2023-07-16 15:45 | disposition home or self-care (01) | LOC: HO.MAMMO 15:44 | PROVIDERS: PCP Internal Medicine; Visit Provider Internal Medicine | DX: Z12.31 Encounter for screening mammogram for malignant neoplasm of breast (principal) | CPT/HCPCS: 77063; 77067 ==

== ENCOUNTER → 2023-07-16 16:00 | Outpatient (BNV) | payer OTHER, SELFPAY | PROVIDERS: PCP Internal Medicine; Visit Provider Radiology Diagnostic Radiology | DX: Z12.31 Encounter for screening mammogram for malignant neoplasm of breast (principal) | CPT/HCPCS: 77063; 77067 ==

== ENCOUNTER 2024-02-22 09:02 | Outpatient (AMB) | payer OTHER, SELFPAY ==
[2024-02-22 09:04] VITALS: BP 126/78; PULSE 67; O2SAT 99; BMI 34.2
--- NOTE | 2024-02-22 09:04 | MHC.PC.OV ---
Vital Signs 02/22/24 09:04 Height 5 ft 5 in Weight 205 lb 4 oz BMI 34.2 BP 126/78 Blood Pressure Location Rt brachial Position Sitting Pulse 67 Pulse Source Pulse Oximeter Pulse Oximetry (%) 99 Oxygen Delivery Method Room Air Intake Visit Reasons: Annual PE Allergies No Known Allergies Allergy (Verified 02/22/24 09:04) Medication List - Last Reconciled 02/22/24 by Inez Yin MD fluoxetine 40 mg (2 x 20 mg) PO DAILY 90 days topiramate 25 mg PO DAILY Tobacco use date assessed: 02/22/24 Dental Screening Dental Screen Date: 02/22/24 Did you have a dental visit in the last 12 months?: Yes Did you have a dental problem in the last 6 months where you did not have access to dental care?: No Was dental information given to patient?: Patient has dentist HPI Annual PE HPI Details Physical exam appointment Has not made OBGYN appointment yet Last visit she said she will book her own appointment. Breast exam declined Headaches are stable, patient is taking Topamax 25 mg daily through neurology Dr. Yin BMI is elevated, patient has been working out trying to lose weight And is having pain under the foot because of that, talked about proper foot wear and also to slow down so the pain can get better before she starts exercising again She has been eating healthy as well, her LDL was 152 last year Patient is prediabetic, last fasting sugar was 115 we will be repeating hemoglobin A1c and rest of the labs today For anxiety patient is on Lexapro 10 mg through Psychiatry. Follow-up 1 year physical exam [facility] Medical History Elevated lipids Anxiety, generalized Abnormal skin growth Lipoma Surgical History No pertinent past surgical history Family History Father Substance use disorder Mother No problems noted. Paternal Grandmother Breast cancer Sister No problems noted. Paternal Aunt Breast cancer Social History Housing: Apartment Alcohol intake: current Alcohol intake frequency: holidays/special occasions only Patient Tobacco Use Status: Former Tobacco user e-Cigarette/Vaping Use: Never Used service: No Current occupational status: employed Cognitive needs: No Hearing needs: No Vision needs: Yes Questionnaire PHQ-9 Over the last 2 weeks, how often have you been bothered by any of the following problems? 1. Little interest or pleasure in doing things: not at all 2. Feeling down, depressed, or hopeless: not at all 3. Trouble falling or staying asleep, or sleeping too much: not at all 4. Feeling tired or having little energy: more than half the days 5. Poor appetite or overeating: more than half the days 6. Feeling bad about yourself - or that you are a failure or have let yourself or your family down: not at all 7. Trouble concentrating on things, such as reading the newspaper or watching television: several days 8. Moving or speaking so slowly that other people could have noticed. Or the opposite - being so fidgety or restless that you have been moving around a lot more than usual: not at all 9. Thoughts that you would be better off or of hurting yourself in some way: not at all Total score: 5 Depression Screening Interpretation: Negative Depression Screening Done: Yes 57966 - PHQ-9 Billing: Yes Source: Developed by Drs. Ramses Jasso, Meghan Aly, Robert Sethi and colleagues, with an educational lalo from [employer]. Thrive Questionnaire Date Thrive assessed: 02/22/24 I am a: Patient What is your living situation today?: I have a steady place to live Within the past 12 months, did the food you bought not last and you didn't have the money to get more?: Never true Within the past 12 months, did you worry whether your food would run out before you got money to buy more?: Never true Do you have trouble paying for medicines?: No Do you have trouble getting transportation to medical appointments?: No Do you have trouble paying your heating and electricity bill?: No Do you have trouble taking care of your child, family member or friend?: No Do you have trouble with day-to-day activities such as bathing, preparing meals, shopping, managing finances, etc.?: No Are you currently unemployed and looking for a job?: No Are you interested in more education?: No Please select the resources that you would like help with: None Currently or been in a relationship where the following occur: No concerns reported THRIVE Score: 0 AUDIT C Alcohol Use Questionnaire (AUDIT-C) 1. How often do you have a drink containing alcohol?: Monthly or less 2. How many drinks containing alcohol do you have on a typical day when you are drinking?: 1 or 2 3. How often do you have six or more drinks on one occasion?: Never Total Score: 1 Score Reviewed/Action Taken: Yes HEMALATHA-7 AMB Questionnaire HEMALATHA-7 Date HEMALATHA - 7 assessed: 02/22/24 Feeling nervous, anxious, or on edge: 1 = Several days Not being able to stop or control worryin = Not at all Worrying too much about different things: 1 = Several days Trouble relaxin = Several days Being so restless that it is hard to sit still: 1 = Several days Becoming easily annoyed or irritable: 1 = Several days Feeling afraid as if something awful might happen: 1 = Several days Total HEMALATHA-7 score (0-4 normal; 5-9 mild; 10-14 moderate; 15-21 severe): 6 Source: Developed by Drs. Ramses Jasso, Meghan Aly, Robert Sethi and colleagues, with an educational lalo from [employer]. HEMALATHA-7 Assessment Billing HEMALATHA-7 Assessment Tool: HEMALATHA-7 Assessment [id number] Review of Systems Const Denies chills, Denies fever(s) and Denies headache(s) Eyes Denies blurry vision ENT Denies headache(s), Denies nasal discharge, Denies nasal obstruction, Denies odynophagia and Denies sinus pain Card Denies chest pain at rest and Denies chest pain with activity Resp Denies cough and Denies hemoptysis GI Denies diarrhea, Denies odynophagia, Denies vomiting and Denies hematemesis Reports as per HPI Musc Denies abnormal gait Skin/Breast Reports as per HPI Neuro Denies Neuro-related abnormal movements, Denies Abnormal speech present, Denies abnormal gait, Denies headache(s) and Denies Sensory deficit (Neuro) Psych Denies mood swings and Denies paranoia Endo Reports as per HPI North/Lymph Reports as per HPI Aller/Immun Reports as per HPI Physical exam (Primary Care) Vital Signs: Last Vital Signs Pulse 67 02/22/24 09:04 BP 126/78 02/22/24 09:04 Pulse Ox 99 02/22/24 09:04 Oxygen Delivery Method Room Air 02/22/24 09:04 BMI result Body Mass Index 34.2 Tobacco/Smoking Status: Tobacco use Status Tobacco use date assessed 02/22/24 02/22/24 09:07 Patient Tobacco Use Status Former Tobacco user 02/22/24 09:04 e-Cigarette/Vaping Use Never Used 02/22/24 09:04 PHQ-9: PHQ-9 Score PHQ-9: Total score 5 02/22/24 09:14 Depression Screening Interpretation: Negative Thrive Assessment: Date of Thrive Assessment Date Thrive assessed 02/22/24 02/22/24 09:07 Currently or been in a relationship where the following occur: No concerns reported Const General: cooperative, comfortable and no acute distress Orientation/consciousness: patient oriented x3 HENMT Head: Yes normocephalic and Yes atraumatic Eyes General: appearance normal, both eyes and all related structures Pupils: Equal, round and reactive pupils present EOM: EOMs intact bilaterally Neck Neck: Yes supple and No lymphadenopathy Thyroid: Thyroid normal Lymphatic: no lymphadenopathy noted Resp Effort & Inspection: normal respiratory effort and able to speak in complete sentences Auscultation: clear to auscultation bilaterally Cardio Heart sounds: S1 normal heart sound present and S2 normal heart sound present GI Palpation (GI): Soft to palpation and nontender Auscultation: normal bowel sounds General: Yes no CVA tenderness Back/Spine/Pelvis Back: no CVA tenderness Skin General skin exam: elasticity normal and turgor normal Neuro General: patient oriented x3 and gait normal Cranial nerves: Yes Equal, round and reactive pupils present Speech: No Abnormal speech present Sensory Exam: No Sensory deficit (Neuro) Coordination: tandem gait normal and Romberg test negative Extrem General: Yes normal exam except as noted and No edema Assessment and Plan Assessment & Plan (1) Annual physical exam: Code(s): Z00.00 - Encounter for general adult medical examination without abnormal findings (2) Migraine headache with aura: Code(s): G43.109 - Migraine with aura, not intractable, without status migrainosus Qualifiers: Intractability: not intractable Status migrainosus presence: without status migrainosus Qualified Code(s): G43.109 - Migraine with aura, not intractable, without status migrainosus (3) Obesity due to excess calories: Comment: If your BMI is between 25 and 29.9, you are overweight. If your BMI is 30 or greater, you are obese. ___ Being obese is a problem, because it increases the risks of many different health problems. It can also make it hard for you to move, breathe, and do other things that people who are at a healthy weight can do easily. Plus, being obese can be hard emotionally. ___ What are the health risks of being obese? Being obese increases a persons risk of developing many health problems. Here are just a few examples: __ Diabetes High blood pressure, High cholesterol, Heart disease (including heart attacks) Stroke, Sleep apnea (a disorder in which you stop breathing for short periods while asleep) Asthma, Cancer __ Does being obese shorten a persons life? Yes. Studies show that people who are obese younger than people who are a healthy weight. They also show that the risk of goes up the heavier a person is. The degree of increased risk depends on how long the person has been obese, and on what other medical problems he or she has. , Reduce your carbohydrate intake and choose carbs that are complex. Remember as a general rule of thumb, avoid highly processed foods. If it's white and soft, it's probably been stripped of its nutritional value. Change white bread to whole wheat bread, white rice to brown rice, white potatoes to sweet potatoes, white pasta to whole wheat pasta. Monitor portion sizes too: protein should be no bigger than your fist. Limit your red meat intake to only once or twice a wk. Eat more white meat but make sure to avoid creamy sauces etc. Broiling, baking or grilling is best. Increase dark, green leafy vegetables and fruits. Code(s): E66.09 - Other obesity due to excess calories Qualifiers: Body mass index: BMI 34.0-34.9 Obesity classification: adult class 1 (BMI 30 - 34.9) Serious obesity comorbidity presence: without serious comorbidity Qualified Code(s): E66.09 - Other obesity due to excess calories; Z68.34 - Body mass index [BMI] 34.0-34.9, adult (4) Pre-diabetes: Code(s): R73.03 - Prediabetes (5) Elevated lipids: Code(s): E78.5 - Hyperlipidemia, unspecified (6) Anxiety, generalized: Code(s): F41.1 - Generalized anxiety disorder Plan Physical exam appointment Has not made OBGYN appointment yet Last visit she said she will book her own appointment. Breast exam declined Headaches are stable, patient is taking Topamax 25 mg daily through neurology Dr. Yin BMI is elevated, patient has been working out trying to lose weight And is having pain under the foot because of that, talked about proper foot wear and also to slow down so the pain can get better before she starts exercising again She has been eating healthy as well, her LDL was 152 last year Patient is prediabetic, last fasting sugar was 115 we will be repeating hemoglobin A1c and rest of the labs today For anxiety patient is on Lexapro 10 mg through Psychiatry. Follow-up 1 year physical exam Orders: Orders Hemoglobin A1c Today Inez Yin MD E66.09 - Other obesity due to excess calories, E78.5 - Hyperlipidemia, unspecified, F41.1 - Generalized anxiety disorder, G43.109 - Migraine with aura, not intractable, without status migrainosus, R73.03 - Prediabetes, Z00.01 - Encounter for general adult medical examination with abnormal findings Complete Blood Count Auto Diff Today Inez Yin MD E66.09 - Other obesity due to excess calories, E78.5 - Hyperlipidemia, unspecified, F41.1 - Generalized anxiety disorder, G43.109 - Migraine with aura, not intractable, without status migrainosus, R73.03 - Prediabetes, Z00.01 - Encounter for general adult medical examination with abnormal findings LDL Cholesterol Direct Today Inez Yin MD E66.09 - Other obesity due to excess calories, E78.5 - Hyperlipidemia, unspecified, F41.1 - Generalized anxiety disorder, G43.109 - Migraine with aura, not intractable, without status migrainosus, R73.03 - Prediabetes, Z00.01 - Encounter for general adult medical examination with abnormal findings Comprehensive Met. Panel Today Inez Yin MD E66.09 - Other obesity due to excess calories, E78.5 - Hyperlipidemia, unspecified, F41.1 - Generalized anxiety disorder, G43.109 - Migraine with aura, not intractable, without status migrainosus, R73.03 - Prediabetes, Z00.01 - Encounter for general adult medical examination with abnormal findings TSH reflex Free T4 Today Inez Yin MD E66.09 - Other obesity due to excess calories, E78.5 - Hyperlipidemia, unspecified, F41.1 - Generalized anxiety disorder, G43.109 - Migraine with aura, not intractable, without status migrainosus, R73.03 - Prediabetes, Z00.01 - Encounter for general adult medical examination with abnormal findings Medications: New escitalopram oxalate (Lexapro) 5 mg PO DAILY nystatin 1 appl topical DAILY 30 grams 1RF 30 days Inez Yin MD Discontinued fluoxetine Discontinued Reason: Doctor's Order 40 mg (2 x 20 mg) PO DAILY 90 days 180 caps 0RF F41.1 - Generalized anxiety disorder Coding Level of Care Code Est Pt Prev Care 40-64y(77183) Diagnoses Annual physical exam Z00.00 Migraine with aura and without status migrainosus, not intractable G43.109 Intractability: not intractable Status migrainosus presence: without status migrainosus Class 1 obesity due to excess calories without serious comorbidity with body mass index (BMI) of 34.0 to 34.9 in adult E66.09; Z68.34 Body mass index: BMI 34.0-34.9 Obesity classification: adult class 1 (BMI 30 - 34.9) Serious obesity comorbidity presence: without serious comorbidity Pre-diabetes R73.03 Elevated lipids E78.5 Anxiety, generalized F41.1 Additional Codes HEMALATHA-7 Assessment Billing - HEMALATHA-7 Assessment Tool: HEMALATHA-7 Assessment [id number] ([id number])
== END 2024-02-22 09:23 | disposition home or self-care (01) ==
PROVIDERS: PCP Internal Medicine; Visit Provider Internal Medicine
DX: Z00.00 Encounter for general adult medical examination without abnormal findings (principal); G43.109 Migraine with aura, not intractable, without status migrainosus; E66.09 Other obesity due to excess calories; Z68.34 Body mass index [BMI] 34.0-34.9, adult; R73.03 Prediabetes; E78.5 Hyperlipidemia, unspecified; F41.1 Generalized anxiety disorder
CPT/HCPCS: 99396

== ENCOUNTER 2024-02-22 09:23 | Outpatient (REF) | payer OTHER, SELFPAY ==
[2024-02-22 10:22] LABS: MANUAL DIFF FLAG NO
[2024-02-22 10:35] LABS: Basophils Absolute Auto 0.1 X10*3/uL (0.0-0.2); Basophils Percent Auto 0.6 % (0-2); Eosinophils Absolute Auto 0.1 X10*3/uL (0.0-0.4); Eosinophils Percent Auto 1.2 % (0-4); Hematocrit 40.6 % (37.0-47.0); Hemoglobin 12.5 g/dl (12.0-16.0); Imm Gran Abs Auto 0.05 X10*3/uL (0.00-0.03); Imm Gran Pct Auto 0.6 % (0.0-0.4); Lymphocytes Percent Auto 23.9 % (20-40); Mean Corpuscular HGB Conc 30.8 g/dl (31.0-35.0); Mean Corpuscular Hemoglobin 25.8 pg (27.0-33.0); Mean Corpuscular Volume 83.9 fL (80.0-98.0); Mean Platelet Volume 10.7 fL (9.4-12.3); Monocytes Absolute Auto 0.3 X10*3/uL (0.1-1.2); Monocytes Percent Auto 3.8 % (2-11); Neutrophils Absolute Auto 5.7 x10*3/uL (2.0-8.3); Neutrophils Percent Auto 69.9 % (45-73); Platelet Count 258 X10*3/uL (160-400); Red Blood Count 4.84 X10*6/uL (4.20-5.50); Red Cell Distribution Width 15.2 % (11.0-16.0); White Blood Count 8.2 X10*3/uL (4.8-10.8)
[2024-02-22 11:07] LABS: Alanine Aminotransferase 13 U/L (0-31); Albumin Level 4.1 g/dL (3.5-5.0); Alkaline Phosphatase 67 U/L (39-117); Anion Gap 15 (12-20); Aspartate Amino Transferase 14 U/L (5-31); Bilirubin Total 0.2 mg/dL (0.0-1.0); Blood Urea Nitrogen 11 mg/dL (9-16); Carbon Dioxide 23 mmol/L (22-29); Chloride 107 mmol/L (96-108); Estimated Glomerular Filt Rate 57; Glucose Random 102 mg/dL (60-115); Potassium 4.2 mmol/L (3.3-5.1); Sodium 141 mmol/L (135-145); Total Protein 7.2 g/dL (6.5-8.0)
[2024-02-22 11:10] LABS: Estimated Average Glucose 111 mg/dL; Hemoglobin A1c % 5.5 % (<6.0)
[2024-02-22 11:23] LABS: TSH reflex Free T4 0.72 uIU/mL (0.32-4.0)
[2024-02-23 16:03] LABS: LDL Cholesterol Direct 160 mg/dL (<100)
== END 2024-02-22 09:24 | disposition home or self-care (01) ==
LOC: HO.HMGCLDS 09:23
PROVIDERS: PCP Internal Medicine; Visit Provider Internal Medicine
DX: Z00.01 Encounter for general adult medical examination with abnormal findings (principal); G43.109 Migraine with aura, not intractable, without status migrainosus; E66.09 Other obesity due to excess calories; R73.03 Prediabetes; E78.5 Hyperlipidemia, unspecified; F41.1 Generalized anxiety disorder
CPT/HCPCS: 36415; 80053; 83036; 83721; 84443; 85025

== ENCOUNTER 2024-11-03 15:22 | Outpatient (REF) | payer OTHER, SELFPAY | END 2024-11-03 15:23 | disposition home or self-care (01) | LOC: HO.MAMMO 15:22 | PROVIDERS: PCP Internal Medicine; Visit Provider Internal Medicine | DX: Z12.31 Encounter for screening mammogram for malignant neoplasm of breast (principal) | CPT/HCPCS: 77063; 77067 ==

== ENCOUNTER → 2024-11-03 15:30 | Outpatient (BNV) | payer OTHER, SELFPAY | PROVIDERS: PCP Internal Medicine; Visit Provider Internal Medicine | DX: Z12.31 Encounter for screening mammogram for malignant neoplasm of breast (principal) | CPT/HCPCS: 77063; 77067 ==